=== PATIENT | female | born 1995 | race Caucasian/White ===

== ENCOUNTER → 2017-11-14 | Outpatient (REF) | payer OTHER | LOC: M LAB REF 17:23 | DX: R87.615 Unsatisfactory cytologic smear of cervix (principal) | CPT/HCPCS: 88142; G0123 ==

== ENCOUNTER → 2017-12-20 | Outpatient (REF) | payer OTHER | LOC: M LAB REF 14:50 | DX: R19.7 Diarrhea, unspecified (principal) ==

== ENCOUNTER → 2018-01-26 | Outpatient (REF) | payer OTHER ==
[2018-01-26 18:04] LABS: CONTROL LINE UCG INT CTR LINE PRESENT; URINE PREG TEST NEGATIVE (NEGATIVE)
== END ==
LOC: M LAB REF 17:16
DX: R11.0 Nausea (principal)

== ENCOUNTER → 2018-03-03 | Outpatient (REF) | payer OTHER ==
[2018-03-03 13:27] LABS: RHEUMATOID FACTOR QUANT < 10.0 IU/ML (<15.0)
[2018-03-03 13:27] LABS: C REACTIVE PROTEIN QUANTITATIV < 0.30 MG/DL (0.00-0.30)
[2018-03-03 13:30] LABS: BASO % 0.4 % (0.0-1.0); EOS # 0.1 10^3/uL (0.0-0.50); EOS % 0.7 % (0.0-3.0); HEMATOCRIT 40.9 % (36.0-47.0); HEMOGLOBIN 14.1 g/dl (12.0-15.5); IMMATURE GRANULOCYTE % 0.4 % (0-3.0); LYMPH # 3.1 10^3/uL (1.5-6.5); LYMPH % 36.6 % (24.0-44.0); MEAN CORPUSCULAR HEMOGLOBIN 30.6 pg (27.0-33.0); MEAN CORPUSCULAR HGB CONC 34.5 g/dl (32.0-36.5); MEAN CORPUSCULAR VOLUME 88.7 fl (80.0-96.0); MONO # 0.4 10^3/uL (0.0-0.8); MONO % 4.2 % (0.0-5.0); NEUTROPHILS # 4.8 10^3/uL (1.8-7.7); NEUTROPHILS % 57.7 % (36.0-66.0); PLATELET COUNT, AUTOMATED 237 10^3/uL (150-450); RED BLOOD COUNT 4.61 10^6/uL (4.00-5.40); RED CELL DISTRIBUTION WIDTH 13.2 % (11.5-14.5); WHITE BLOOD COUNT 8.4 10^3/uL (4.0-10.0)
[2018-03-03 14:20] LABS: ERYTHROCYTE SEDIMENTATION RATE 7 mm/hr (0-20)
[2018-03-08 00:08] LABS: ANTINUCLEAR ANTIBODIES DIRECT Negative (Negative); HLA-B27 Negative (.); Lyme Disease IgG/IgM Antibodie <0.91 ISR (0.00-0.90); Lyme Disease IgM Ab Quantitati <0.80 index (0.00-0.79)
== END ==
LOC: M LABDRAW1 10:24
DX: M25.532 Pain in left wrist (principal)
CPT/HCPCS: 86140

== ENCOUNTER → 2018-06-16 | Outpatient (CLI) | payer MEDICAID, OTHER | LOC: M RAD 16:17 | DX: Z34.82 Encounter for supervision of other normal pregnancy, second trimester (principal); Z36.89 Encounter for other specified antenatal screening; Z3A.17 17 weeks gestation of pregnancy | CPT/HCPCS: 76811 ==

== ENCOUNTER → 2018-07-07 | Outpatient (CLI) | payer MEDICAID | LOC: M LAB 15:01 | DX: Z34.82 Encounter for supervision of other normal pregnancy, second trimester (principal) | CPT/HCPCS: 36415 ==

== ENCOUNTER → 2018-07-21 | Outpatient (CLI) | payer OTHER | LOC: M RAD 14:24 | DX: O99.332 Smoking (tobacco) complicating pregnancy, second trimester (principal); F17.210 Nicotine dependence, cigarettes, uncomplicated; Z3A.22 22 weeks gestation of pregnancy | CPT/HCPCS: 76816 ==

== ENCOUNTER → 2018-08-29 | Outpatient (CLI) | payer OTHER ==
[2018-08-29 13:10] LABS: HEMATOCRIT 30.6 % (36.0-47.0); HEMOGLOBIN 10.6 g/dl (12.0-15.5); MEAN CORPUSCULAR HGB CONC 34.6 g/dl (32.0-36.5); MEAN CORPUSCULAR VOLUME 92.4 fl (80.0-96.0); PLATELET COUNT, AUTOMATED 200 10^3/uL (150-450); RED BLOOD COUNT 3.31 10^6/uL (4.00-5.40); WHITE BLOOD COUNT 10.7 10^3/uL (4.0-10.0)
== END ==
LOC: M LAB 11:28
PROVIDERS: ATTEND Advanced Practice Midwife
DX: O99.332 Smoking (tobacco) complicating pregnancy, second trimester (principal); F17.200 Nicotine dependence, unspecified, uncomplicated

== ENCOUNTER → 2018-09-19 | Outpatient (CLI) | payer OTHER | LOC: M LAB 07:56 | PROVIDERS: ATTEND Advanced Practice Midwife | DX: R73.02 Impaired glucose tolerance (oral) (principal) ==

== ENCOUNTER 2018-09-29 14:55 | Emergency (ER) | payer OTHER ==
[~2018-09-29] VITALS: Ht 157.5 cm; Wt 89.8 kg
[2018-09-29 14:55] VITALS: BP 137/93
[2018-09-29] MEDS ORDERED: PRENTAB9 PO (15:55)
== END 2018-09-29 15:45 | disposition admitted as inpatient to this hospital (09) ==
LOC: M ED 14:55
DX: Z04.1 Encounter for examination and observation following transport accident (principal)

== ENCOUNTER 2018-09-29 15:25 | Outpatient (CLI) | payer OTHER ==
[~2018-09-29] VITALS: Ht 157.5 cm; Wt 89.8 kg
[2018-09-29 15:49] VITALS: BP 121/69
[2018-09-29] MEDS ORDERED: PRENTAB9 PO (15:55)
[2018-09-29 16:57] VITALS: BP 126/76
[2018-09-29] MEDS ORDERED: CALCIUM CARBONATE 500 MG CHEW U/D PO PRN (17:15)
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
[2018-09-29 18:48] VITALS: BP 117/66
[2018-09-29 19:59] VITALS: BP 127/74
== END 2018-09-29 20:00 | disposition home or self-care (01) ==
LOC: M LDO 15:25
PROVIDERS: ATTEND Advanced Practice Midwife
DX: O99.89 Other specified diseases and conditions complicating pregnancy, childbirth and the puerperium (principal); Z3A.32 32 weeks gestation of pregnancy; V49.9XXA Car occupant (driver) (passenger) injured in unspecified traffic accident, initial encounter

== ENCOUNTER → 2018-10-24 | Outpatient (REF) | payer OTHER ==
[~2018-10-24] MED LIST: PRENTAB9 PO
== END ==
LOC: M LAB REF 16:41
PROVIDERS: ATTEND Advanced Practice Midwife
DX: O99.333 Smoking (tobacco) complicating pregnancy, third trimester (principal); Z3A.00 Weeks of gestation of pregnancy not specified

== ENCOUNTER → 2018-10-31 | Outpatient (CLI) | payer OTHER ==
[~2018-10-31] MED LIST changes: +TUMS500C PO
[2018-10-31 14:10] LABS: HEMATOCRIT 37.1 % (36.0-47.0); HEMOGLOBIN 12.4 g/dl (12.0-15.5); MEAN CORPUSCULAR HEMOGLOBIN 31.1 pg (27.0-33.0); MEAN CORPUSCULAR HGB CONC 33.4 g/dl (32.0-36.5); PLATELET COUNT, AUTOMATED 221 10^3/uL (150-450); RED BLOOD COUNT 3.99 10^6/uL (4.00-5.40); WHITE BLOOD COUNT 11.3 10^3/uL (4.0-10.0)
[2018-10-31 14:42] LABS: ALT/SGPT 16 U/L (12-78); BILIRUBIN,TOTAL 0.6 MG/DL (0.2-1.0); CREATININE FOR GFR 0.77 MG/DL (0.55-1.30); GLOMERULAR FILTRATION RATE > 60.0 (>60); LDH LACTATE DEHYDROGENASE 184 U/L (84-246); URIC ACID 5.6 MG/DL (2.6-6.0)
[2018-10-31 14:54] LABS: TOTAL PROTEIN,RANDOM URINE 64.8 MG/DL (0.0-12.0)
== END ==
LOC: M LAB 12:44
PROVIDERS: ATTEND Advanced Practice Midwife
DX: Z34.03 Encounter for supervision of normal first pregnancy, third trimester (principal); R03.0 Elevated blood-pressure reading, without diagnosis of hypertension

== ENCOUNTER 2018-11-02 07:07 | Outpatient (CLI) | payer OTHER ==
[~2018-11-02] VITALS: Ht 157.5 cm; Wt 91.0 kg
[~2018-11-02 07:07] MED LIST changes: -TUMS500C PO
[2018-11-02 08:19] LABS: HEMATOCRIT 33.3 % (36.0-47.0); HEMOGLOBIN 11.4 g/dl (12.0-15.5); MEAN CORPUSCULAR HEMOGLOBIN 31.2 pg (27.0-33.0); MEAN CORPUSCULAR HGB CONC 34.2 g/dl (32.0-36.5); MEAN CORPUSCULAR VOLUME 91.2 fl (80.0-96.0); PLATELET COUNT, AUTOMATED 208 10^3/uL (150-450); RED BLOOD COUNT 3.65 10^6/uL (4.00-5.40); WHITE BLOOD COUNT 12.9 10^3/uL (4.0-10.0)
[2018-11-02 08:42] LABS: ALT/SGPT 18 U/L (12-78); BILIRUBIN,TOTAL 0.5 MG/DL (0.2-1.0); CREATININE FOR GFR 0.74 MG/DL (0.55-1.30); GLOMERULAR FILTRATION RATE > 60.0 (>60); LDH LACTATE DEHYDROGENASE 171 U/L (84-246); URIC ACID 5.1 MG/DL (2.6-6.0)
== END 2018-11-02 11:25 | disposition home or self-care (01) ==
LOC: M LDO 07:07
PROVIDERS: ATTEND Specialist
DX: O10.913 Unspecified pre-existing hypertension complicating pregnancy, third trimester (principal); O99.343 Other mental disorders complicating pregnancy, third trimester; F41.9 Anxiety disorder, unspecified; O47.1 False labor at or after 37 completed weeks of gestation; Z3A.37 37 weeks gestation of pregnancy

== ENCOUNTER 2018-11-05 13:48 | Inpatient (IN) | payer OTHER ==
[2018-11-05] VITALS (14 sets, daily range): BP systolic 121–164; BP diastolic 74–105
[~2018-11-05] VITALS: Ht 157.5 cm; Wt 91.5 kg
[2018-11-05] MEDS ORDERED: TUMS500C PO (14:38)
[2018-11-05] MEDS: miSOPROStol 50 MCG 1/2 TAB (S0191) PO SCH ×2 (15:15→19:51)
--- NOTE | 2018-11-05 15:16 | HPE ---
DATE OF ADMISSION: 11/05/2018 SUBJECTIVE: Marta is a 23-year-old, 1, para 0 at 38-1/7 weeks gestation with an EDC of 11/18/2018 based on last menstrual period and confirmed by first trimester ultrasound. She presents to labor and delivery today per consult with Dr. Joel Beckwith for induction of labor due to gestational hypertension. She does deny headache, visual disturbances, epigastric pain and right upper quadrant discomfort. She denies vaginal bleeding and leakage of fluid. She does report an occasional contraction and she reports the fetus has been active. Her care was initiated at [facility] in the first trimester. course complicated by a history of smoking throughout her and a recent diagnosis of gestational hypertension. OBSTETRIC HISTORY: Primigravida. OBSTETRIC LABS: A positive. Antibody screen negative. Pap unsatisfactory. Rubella immune. VDRL nonreactive. Urine culture no growth. Hep B surface antigen negative. HIV negative. Hep C antibody nonreactive. Gonorrhea and chlamydia negative. Panorama testing for aneuploidy low risk for aneuploidy with a female fetus. Gestational diabetic screening abnormal 173. Her 3-hour glucose tolerance test was normal, fasting 98, 1-hour 159, 2-hour 144, 3-hour 84. GBS is negative. Recent pre-eclamptic labs were drawn on the returned normal results, platelets of 221. Spot urine was in the normal 0.22. PAST MEDICAL HISTORY: Seasonal allergies. SURGERIES: None. FAMILY HISTORY: Noncontributory. SOCIAL HISTORY: The patient is , her is at bedside and supportive. She is a smoker. She does report smoking three to five cigarettes throughout her . A history of chlamydia in 2016. Denies alcohol and drug use and denies history of abuse physical, sexual and emotional. ALLERGIES: AUGMENTIN, STEROIDS causing a rash. CURRENT MEDICATIONS: - Zantac 150 twice a day - Zofran ODT 4 mg as needed - Esgic Fioricet 50/325/40 every 4 hours as needed as needed for headache - vitamin OBJECTIVE: Upon arrival, temperature 97.8, pulse 95, respirations 18. Initial BP 164/105. Repeat approximately 10 minutes later 143/99. She is alert and oriented times three. No apparent discomfort, smiling and talkative. heart rate is 135, moderate variability, positive accelerations, negative decelerations. Contractions every 5-7 minutes. Palpate mild. Her abdomen is gravid. Cephalic presentation. Estimated weight 7-1/2 pounds. Sterile vaginal exam - 1 cm dilated, 50% effaced, minus three station, posterior, very soft, no show with the exam. ASSESSMENT: Intrauterine at 38-1/7 weeks. heart rate category I. Gestational hypertension. PLAN: Admit patient to labor and delivery. Saline lock at this time. Regular diet at this time. Routine labs with the addition of a repeat pre-eclamptic profile and spot urine. The patient may consider an epidural for her labor coping when she is uncomfortable. I plan to start misoprostol 50 mcg by mouth every 4 hours for cervical ripening. Reviewed the plan for likely Pitocin for induction of labor once cervix is ripe. I did review risks to inductions that include intolerance to labor, failed induction, slight increase risk of section and arrest of dilation. The patient has been verbally consented for emergency surgery and blood products. The patient and her have had all their questions answered and do desire to proceed with induction today. I do anticipate cervical ripening. MTDD
[2018-11-05 15:20] LABS: HEMATOCRIT 34.7 % (36.0-47.0); HEMOGLOBIN 11.8 g/dl (12.0-15.5); MEAN CORPUSCULAR HEMOGLOBIN 31.1 pg (27.0-33.0); MEAN CORPUSCULAR VOLUME 91.3 fl (80.0-96.0); PLATELET COUNT, AUTOMATED 213 10^3/uL (150-450); WHITE BLOOD COUNT 10.1 10^3/uL (4.0-10.0)
[2018-11-05 15:47] LABS: ALT/SGPT 17 U/L (12-78); BILIRUBIN,TOTAL 0.7 MG/DL (0.2-1.0); CREATININE FOR GFR 0.72 MG/DL (0.55-1.30); GLOMERULAR FILTRATION RATE > 60.0 (>60); LDH LACTATE DEHYDROGENASE 173 U/L (84-246); URIC ACID 5.8 MG/DL (2.6-6.0)
[2018-11-05 15:55] LABS: TOTAL PROTEIN,RANDOM URINE 67.3 MG/DL (0.0-12.0)
[2018-11-05] MEDS: LR 1,000 ML IV SCH (23:59)
[2018-11-06] VITALS (45 sets, daily range): BP systolic 100–181; BP diastolic 54–91
[2018-11-06] MEDS ORDERED: OXYTOCIN DRIP 30 UNITS in APPROPRIATE DILUENT 1 EA IV SCH ×2
[2018-11-06] MEDS ORDERED: PROMETHAZINE INJ 25 MG/ML VIAL (J2550) IV ONE (06:45)
[2018-11-06] MEDS ORDERED: BUTORPHANOL 2 MG/ML INJ (J0595) IV ONE (06:45)
[2018-11-06] MEDS ORDERED: FENTANYL 2MCG/ML ROPIVACAINE 0.2% IN 0.9% NACL 100ML IVBAG As Ordered ONE (08:25)
[2018-11-06] MEDS ORDERED: LR 500 ML IV ONE (08:45)
[2018-11-06] MEDS ORDERED: ePHEDrine SULFATE 25 MG/5 ML(5MG/ML) SYRINGE As Ordered ONE (09:34)
[2018-11-06] MEDS: ePHEDrine SULFATE 25 MG/5 ML(5MG/ML) SYRINGE IV PRN ×2 (09:35→09:38)
[2018-11-06] MEDS: LR 1,000 ML IV SCH (10:01)
[2018-11-06] MEDS ORDERED: EPIDURAL COMMENT XX SCH (10:30)
[2018-11-06] MEDS ORDERED: REFRIGERATOR IV KEYS XX PRN (10:30)
[2018-11-06] MEDS ORDERED: EPIDURAL/PCA KEYS XX PRN (10:30)
[2018-11-06] MEDS ORDERED: diphenhydrAMINE INJ 50MG/ML VIAL (J1200) IV PRN (10:30)
[2018-11-06] MEDS ORDERED: NALOXONE INJ 0.4 MG/1 ML VIAL (J2310) IV PRN (10:30)
[2018-11-06] MEDS ORDERED: FENTANYL/ROPIVACAINE/NACL BAG 100 ML EPIDURAL SCH (10:30)
[2018-11-06] MEDS ORDERED: LACTATED RINGER'S 1000 ML IV PRN (10:30)
[2018-11-06] MEDS ORDERED: ONDANSETRON 4MG/2ML VIAL (J2405) IV PRN ×2 (10:30→11:30)
[2018-11-06] MEDS ORDERED: METHYLERGONOVINE MALEATE 0.2 MG TAB PO PRN (11:30)
[2018-11-06] MEDS ORDERED: MEASLES,MUMPS,RUBELLA VACCINE INJ (MMR-II) (90707) SC SCH (11:30)
[2018-11-06] MEDS ORDERED: RHOGAM 300 MCG (1500 IU) INJ (J2790) IM SCH (11:30)
[2018-11-06] MEDS ORDERED: OXYTOCIN DRIP 30 UNITS in APPROPRIATE DILUENT 1 EA IV ONE (11:30)
[2018-11-06] MEDS ORDERED: DOCUSATE SODIUM 100 MG CAP PO PRN (11:30)
[2018-11-06] MEDS ORDERED: LIDOCAINE 1% MDV 20ML VIAL INFIL ONE (11:30)
[2018-11-06] MEDS ORDERED: DIBUCAINE 1% OINTMENT 30GM TOP PRN (11:30)
--- NOTE | 2018-11-06 13:13 | DN ---
DATE OF DELIVERY: 11/06/2018 PREDELIVERY DIAGNOSIS: 38 and 1/7 weeks gestation, chronic hypertension, labor induction. POSTDELIVERY DIAGNOSIS: Delivered. PROCEDURE: Spontaneous vaginal delivery. HEAD MACHINIST: Dr. Joel Beckwith ANESTHESIA: Epidural. ESTIMATED BLOOD LOSS: 300 mL. FINDINGS: 7 pound and 8 ounce female , Apgars 8 and 9. DELIVERY SUMMARY: After a 30 minute second stage, the patient had spontaneous delivery of a 7 pound and 8 ounce female infant, Apgars 8 and 9, under epidural anesthesia. A nuchal cord times one was reduced manually. The shoulders delivered with ease. The infant was handed to the mother and cried. The placenta delivered spontaneously and appeared to be intact. The patient received IV Pitocin immediately after delivery of the placenta. A first degree right labial laceration was repaired with #2-0 chromic in the usual fashion under local anesthesia. Sponge and needle counts were correct.
[2018-11-06] MEDS: IBUPROFEN 800 MG TAB PO PRN (16:28)
[2018-11-06] MEDS: ACETAMINOPHEN 500 MG TAB PO PRN (23:22)
[2018-11-07 05:43] VITALS: BP 113/53
[2018-11-07] MEDS: PRENATAL VITAMINS CHEWABLE TABLET PO SCH (08:29)
[2018-11-07] MEDS: IBUPROFEN 800 MG TAB PO PRN (13:31)
[2018-11-07 18:00] VITALS: BP 136/72
[2018-11-07] MEDS: ACETAMINOPHEN 500 MG TAB PO PRN (19:54)
[2018-11-08 06:44] VITALS: BP 136/90
[2018-11-08] MEDS ORDERED: IBUP-1114 PO (07:45)
[2018-11-08] MEDS ORDERED: MAPA500T2 PO (07:45)
[2018-11-08] MEDS: PRENATAL VITAMINS CHEWABLE TABLET PO SCH (08:06)
[2018-11-08 14:00] VITALS: BP 138/78
== END 2018-11-08 14:35 | disposition home or self-care (01) | DRG 560 ==
LOC: M LDI 13:48 → M OBS 11-06 16:24
PROVIDERS: ADMIT Advanced Practice Midwife; ATTEND Advanced Practice Midwife
PROC: 3E0P7GC Introduction of Other Therapeutic Substance into Female Reproductive, Via Natural or Artificial Opening (ICD-10-PCS; 2018-11-05)
PROC: 10E0XZZ Delivery of Products of Conception, External Approach (ICD-10-PCS; principal; 2018-11-06)
PROC: 0HQ9XZZ Repair Perineum Skin, External Approach (ICD-10-PCS; 2018-11-06)
DX: O13.4 Gestational [pregnancy-induced] hypertension without significant proteinuria, complicating childbirth (principal); F17.210 Nicotine dependence, cigarettes, uncomplicated; O99.334 Smoking (tobacco) complicating childbirth; O70.0 First degree perineal laceration during delivery; Z37.0 Single live birth; O69.81X0 Labor and delivery complicated by cord around neck, without compression, not applicable or unspecified; Z3A.38 38 weeks gestation of pregnancy

== ENCOUNTER → 2018-12-19 | Outpatient (CLI) | payer OTHER ==
[~2018-12-19] MED LIST changes: +IBUP-1114 PO; +MAPA500T2 PO; +TUMS500C PO
--- NOTE | 2018-12-19 15:45 | REP ---
Left shoulder three views: There is no fracture or dislocation. Mineralization and joint spaces are normal. There are no calcifications or foreign bodies. Impression: Negative left shoulder . Electronically Signed by Sukhjinder Trevino MD 12/19/2018 03:36 P
== END ==
LOC: M WUC 14:30
PROVIDERS: ATTEND Physician Assistant
DX: M25.512 Pain in left shoulder (principal)

== ENCOUNTER → 2019-07-17 | Outpatient (CLI) | payer OTHER ==
[~2019-07-17] MED LIST changes: +GASTROGRAFIN SOLUTION 30ML (Q9963) As Ordered ONE; +ISOVUE-370 76% 100ML VIAL (Q9967) As Ordered ONE
--- NOTE | 2019-07-17 18:45 | REPVR ---
PROCEDURE INFORMATION: Exam: CT Abdomen And Pelvis With Contrast Exam date and time: 07/17/2019 5:22 PM Clinical history: 24 years old, female; Abdominal pain; Localized; Right lower quadrant (rlq); Additional info: Right lower quadrant abdominal tenderness TECHNIQUE: Imaging protocol: Computed tomography of the abdomen and pelvis with intravenous contrast. Radiation optimization: All CT scans at this facility use at least one of these dose optimization techniques: automated exposure control; mA and/or kV adjustment per patient size (includes targeted exams where dose is matched to clinical indication); or iterative reconstruction. Contrast material: ISOVUE 370; Contrast volume: 100 ml; Contrast route: IV; COMPARISON: US OBS FOLL UP OR REPEAT EACH GES 07/21/2018 2:34 PM FINDINGS: Liver: There is a diffuse decrease in hepatic parenchymal density, consistent with fatty infiltration. Gallbladder and bile ducts: Normal. No calcified stones. No ductal dilation. Pancreas: Normal. No ductal dilation. Spleen: Normal. No splenomegaly. Adrenals: Normal. No mass. Kidneys and ureters: Normal. No hydronephrosis. Stomach and bowel: Unremarkable. No obstruction. No mucosal thickening. Appendix: The appendix is within normal limits. There is no appendiceal enlargement, periappendiceal inflammatory changes or abscess. Intraperitoneal space: Unremarkable. No free air. No significant fluid collection. Vasculature: Unremarkable. No abdominal aortic aneurysm. Lymph nodes: Unremarkable. No enlarged lymph nodes. Bladder: Unremarkable as visualized. Reproductive: Unremarkable as visualized. Bones/joints: Unremarkable. No acute fracture. Soft tissues: Unremarkable. IMPRESSION: 1. There is a diffuse decrease in hepatic parenchymal density, consistent with fatty infiltration. 2. The appendix is within normal limits. There is no appendiceal enlargement, periappendiceal inflammatory changes or abscess. Electronically signed by: Richardson Ward On 07/17/2019 18:45:43 PM
== END ==
LOC: M RAD 15:51
PROVIDERS: ATTEND Nurse Practitioner Family
DX: R10.813 Right lower quadrant abdominal tenderness (principal)
CPT/HCPCS: 74177; Q9963; Q9967